=== PATIENT | male | born 1950 | race Caucasian/White ===

== ENCOUNTER 2022-01-03 23:51 | Inpatient (IN) | payer MEDICARE ==
[~2022-01-03] VITALS: Ht 182.9 cm; Wt 80.7 kg
[2022-01-04 01:27] LABS: CHLORIDE 88 mEq/L (98-107)
[2022-01-04 01:28] LABS: HEMATOCRIT. 24.6 % (42.0-52.0); HEMOGLOBIN. 8.6 g/dL (14.0-18.0); MEAN CORPUSCULAR VOLUME 97.1 fL (80.0-94.0); MEAN PLATELET VOLUME 8.4 fl (7.4-10.4); PLATELET 272 x1000/uL (130-400); RED BLOOD CELL COUNT 2.54 mill/uL (4.7-6.1)
[2022-01-04 01:38] LABS: BETA HYDROXYBUTYRATE 1.6 mMol/L (0.0-0.3)
[2022-01-04 05:15] LABS: PLATELET ESTIMATE NORMAL
[2022-01-04] MEDS ORDERED: NITROGLYCERIN 0.4MG TABLET SL SL PRN (07:15)
[2022-01-04] MEDS ORDERED: GUAIFENESIN 200MG/10ML SUGAR FREE UDC PO PRN (07:15)
[2022-01-04] MEDS ORDERED: ONDANSETRON HCL 4MG/2ML INJ IV PRN (07:15)
[2022-01-04] MEDS ORDERED: IPRATROPIUM/ALBUTEROL 0.5-3(2.5)MG/3ML NEB NEB PRN (07:15)
[2022-01-04] MEDS ORDERED: MAGNESIUM/ALUMINUM HYDROXIDE/SIMETHICONE 30ML UDC PO PRN (07:15)
[2022-01-04] MEDS ORDERED: CLONIDINE 0.1MG TABLET PO PRN (07:15)
[2022-01-04] MEDS ORDERED: ENOXAPARIN 40MG/0.4ML SYR SUBCUT SCH (07:15)
[2022-01-04] MEDS ORDERED: ACETAMINOPHEN 325MG TABLET PO PRN ×2 (07:15)
[2022-01-04] MEDS ORDERED: DOCUSATE SODIUM 100MG CAPSULE PO PRN (07:15)
[2022-01-04] MEDS ORDERED: DEXTROSE 50% WATER 50ML SYRINGE IV PRN (07:15)
[2022-01-04] MEDS ORDERED: PIPERACILLIN/TAZ 3.375G PREMIX 50 ML IV SCH (07:15)
[2022-01-04] MEDS ORDERED: SODIUM CHLORIDE 0.9% 1000ML BAG (SEPSIS BOLUS) IV ONE (07:15)
[2022-01-04] MEDS ORDERED: SODIUM CHLORIDE 0.9% 500 ML IV SCH (07:30)
[2022-01-04] MEDS ORDERED: VANCOMYCIN 1,500 MG in DEXT 5% WATER 250 ML IV NR (08:00)
[2022-01-04] MEDS: INSULIN LISPRO 100 UNITS/ML SUBCUT SCH ×4 (08:28→21:33)
[2022-01-04] MEDS: ASPIRIN 325MG EC TABLET PO SCH (08:54)
[2022-01-04] MEDS: ENOXAPARIN 30MG/0.3ML SYR SUBCUT SCH (08:54)
[2022-01-04] MEDS: FAMOTIDINE 20MG TABLET PO SCH (08:54)
[2022-01-04] MEDS: BLOOD SUGAR DIAGNOSTIC STRIP TEST SCH ×4 (08:54→21:35)
[2022-01-04] MEDS: INSULIN GLARGINE 100 UNITS/ML SUBCUT SCH (10:00)
[2022-01-04 14:00] VITALS: BP 108/54
[2022-01-04 14:23] LABS: T4 FREE 1.33 ng/dL (0.76-1.46)
[2022-01-04 16:00] VITALS: BP 116/59
[2022-01-04 20:00] VITALS: BP 109/51
[2022-01-04] MEDS ORDERED: PIPERACILLIN/TAZOBACTAM 3.375 G in DEXTROSE 5% WATER 50 ML IV SCH (21:00)
[2022-01-04] MEDS ORDERED: ZOLPIDEM TARTRATE 5MG TABLET PO PRN (21:00)
[2022-01-04] MEDS: EPOETIN ALFA-EPBX 4,000 UNIT/ML VIAL SUBCUT SCH (21:32)
[2022-01-04] MEDS: PIPERACILLIN/TAZOBACTAM 3.375 G in DEXTROSE 5% WATER 50 ML IV SCH (21:35)
[2022-01-04 22:58] LABS: CREATINE KINASE MB FRACTION 6.4 ng/mL (0.5-3.6)
[2022-01-04 23:31] LABS: VITAMIN B12 SERUM 401 pg/mL (211-911)
[2022-01-05] VITALS: BP 105/55
[2022-01-05 02:58] LABS: CREATINE KINASE MB FRACTION 5.3 ng/mL (0.5-3.6)
[2022-01-05 04:00] VITALS: BP 103/38
[2022-01-05] MEDS: INSULIN LISPRO 100 UNITS/ML SUBCUT SCH ×4 (06:18→20:53)
[2022-01-05] MEDS: BLOOD SUGAR DIAGNOSTIC STRIP TEST SCH ×4 (06:18→20:43)
[2022-01-05 07:38] LABS: HEMATOCRIT. 23.3 % (42.0-52.0); MEAN CORPUSCULAR HEMOGLOBIN 33.3 pg (28.0-32.0); MEAN PLATELET VOLUME 8.6 fl (7.4-10.4); PLATELET 231 x1000/uL (130-400); RED CELL DISTRIBUTION WIDTH 13.9 % (11.6-14.6)
[2022-01-05 08:00] VITALS: BP 94/88
[2022-01-05 08:40] LABS: FOLIC ACID (FOLATE) SERUM > 20.00 ng/mL (>5.38)
[2022-01-05 08:43] LABS: CHLORIDE 88 mEq/L (98-107)
[2022-01-05 09:01] LABS: PHOSPHORUS 4.7 mg/dL (2.5-4.9)
[2022-01-05] MEDS: FAMOTIDINE 20MG TABLET PO SCH (09:31)
[2022-01-05] MEDS: PIPERACILLIN/TAZOBACTAM 3.375 G in DEXTROSE 5% WATER 50 ML IV SCH ×2 (09:31→20:47)
[2022-01-05] MEDS: ENOXAPARIN 30MG/0.3ML SYR SUBCUT SCH (09:31)
[2022-01-05] MEDS: ASPIRIN 325MG EC TABLET PO SCH (09:32)
[2022-01-05] MEDS: INSULIN GLARGINE 100 UNITS/ML SUBCUT SCH (09:34)
[2022-01-05 10:30] LABS: PLATELET ESTIMATE NORMAL
[2022-01-05 12:00] VITALS: BP 96/51
[2022-01-05 16:00] VITALS: BP 101/49
[2022-01-05] MEDS ORDERED: VANCOMYCIN 1500MG in DEXTROSE 5% WATER 250ML IV NR (16:00)
[2022-01-05 20:00] VITALS: BP 113/54
[2022-01-05] MEDS: ATORVASTATIN CALCIUM 40MG TABLET PO SCH (20:47)
[2022-01-06] VITALS: BP 114/59
[2022-01-06 04:00] VITALS: BP 106/56
[2022-01-06] MEDS: BLOOD SUGAR DIAGNOSTIC STRIP TEST SCH ×4 (06:40→21:36)
[2022-01-06] MEDS: INSULIN LISPRO 100 UNITS/ML SUBCUT SCH ×3 (07:10→21:36)
[2022-01-06 08:00] VITALS: BP 105/55
[2022-01-06] MEDS: ENOXAPARIN 30MG/0.3ML SYR SUBCUT SCH (08:00)
[2022-01-06 08:55] LABS: HEMATOCRIT 23.8 % (42.0-52.0); HEMOGLOBIN 8.1 g/dL (14.0-18.0); MEAN CORPUSCULAR HEMOGLOBIN 33.3 pg (28.0-32.0); MEAN CORPUSCULAR VOLUME 97.8 fL (80.0-94.0); PLATELET 244 x1000/uL (130-400); RED BLOOD CELL COUNT 2.44 mill/uL (4.7-6.1); RED CELL DISTRIBUTION WIDTH 14.1 % (11.6-14.6)
[2022-01-06] MEDS: PIPERACILLIN/TAZOBACTAM 3.375 G in DEXTROSE 5% WATER 50 ML IV SCH ×2 (09:00→21:22)
[2022-01-06] MEDS: ASPIRIN 81MG EC TABLET PO SCH (09:00)
[2022-01-06] MEDS: FAMOTIDINE 20MG TABLET PO SCH (09:00)
[2022-01-06] MEDS ORDERED: PROPOFOL 200MG/20ML VIAL IV ONE (09:10)
[2022-01-06] MEDS ORDERED: DEXAMETHASONE 4MG/ML 1ML VIAL ONE (09:11)
[2022-01-06] MEDS ORDERED: ONDANSETRON HCL 4MG/2ML INJ ONE (09:11)
[2022-01-06] MEDS ORDERED: CEFAZOLIN SODIUM 1000MG/VIAL ONE (09:12)
[2022-01-06] MEDS ORDERED: FENTANYL CITRATE/PF 50MCG/ML 2ML VIAL ONE (09:17)
[2022-01-06] MEDS ORDERED: MIDAZOLAM HCL 2 MG/2 ML VIAL ONE (09:17)
[2022-01-06] MEDS ORDERED: ETOMIDATE 2MG/ML 10ML VIAL IV ONE (09:34)
[2022-01-06] MEDS ORDERED: LIDOCAINE HCL 1% 10 MG/ML 10ML VIAL ONE (09:38)
[2022-01-06] MEDS ORDERED: BUPIVACAINE HCL/PF 0.5% (5MG/ML) 10ML ONE (09:38)
[2022-01-06] MEDS: INSULIN GLARGINE 100 UNITS/ML SUBCUT SCH (10:00)
[2022-01-06] MEDS ORDERED: FENTANYL CITRATE/PF 50MCG/ML 2ML VIAL IV PRN (10:30)
[2022-01-06] MEDS ORDERED: ATROPINE SULFATE 0.4MG/ML VIAL IV PRN (10:30)
[2022-01-06 12:00] VITALS: BP 101/56
[2022-01-06 14:53] LABS: HEPATITIS B SURFACE ANTIGEN NEGATIVE
[2022-01-06 16:00] VITALS: BP 126/60
[2022-01-06] MEDS: SODIUM CHLORIDE 0.45% 1,000 ML IV SCH (17:36)
[2022-01-06] MEDS ORDERED: VANCOMYCIN 500MG PREMIX 100 ML IV NR (18:00)
[2022-01-06 20:00] VITALS: BP 108/57
[2022-01-06] MEDS: ATORVASTATIN CALCIUM 40MG TABLET PO SCH (21:26)
[2022-01-06] MEDS: EPOETIN ALFA-EPBX 4,000 UNIT/ML VIAL SUBCUT SCH (21:26)
[2022-01-07] VITALS (8 sets, daily range): BP systolic 84–110; BP diastolic 48–64
[2022-01-07] MEDS: BLOOD SUGAR DIAGNOSTIC STRIP TEST SCH ×4 (06:44→21:00)
[2022-01-07] MEDS: ENOXAPARIN 30MG/0.3ML SYR SUBCUT SCH (08:00)
[2022-01-07] MEDS: ASPIRIN 81MG EC TABLET PO SCH (09:00)
[2022-01-07] MEDS: FAMOTIDINE 20MG TABLET PO SCH (09:28)
[2022-01-07] MEDS: INSULIN GLARGINE 100 UNITS/ML SUBCUT SCH (09:29)
[2022-01-07] MEDS: INSULIN LISPRO 100 UNITS/ML SUBCUT SCH ×4 (09:29→21:10)
[2022-01-07] MEDS: PIPERACILLIN/TAZOBACTAM 3.375 G in DEXTROSE 5% WATER 50 ML IV SCH ×2 (09:30→21:14)
[2022-01-07] MEDS: SODIUM CHLORIDE 0.45% 1,000 ML IV SCH (09:32)
[2022-01-07] MEDS: ATORVASTATIN CALCIUM 40MG TABLET PO SCH (21:09)
[2022-01-08] VITALS: BP 112/62
[2022-01-08] MEDS: SODIUM CHLORIDE 0.45% 1,000 ML IV SCH ×2 (02:00→18:50)
[2022-01-08 04:00] VITALS: BP 110/61
[2022-01-08] MEDS: BLOOD SUGAR DIAGNOSTIC STRIP TEST SCH ×4 (06:40→20:47)
[2022-01-08] MEDS: INSULIN LISPRO 100 UNITS/ML SUBCUT SCH ×4 (06:42→20:47)
[2022-01-08 08:00] VITALS: BP 111/61
[2022-01-08] MEDS: ENOXAPARIN 30MG/0.3ML SYR SUBCUT SCH (10:14)
[2022-01-08] MEDS: PIPERACILLIN/TAZOBACTAM 3.375 G in DEXTROSE 5% WATER 50 ML IV SCH ×2 (10:14→20:47)
[2022-01-08] MEDS: FAMOTIDINE 20MG TABLET PO SCH (10:15)
[2022-01-08] MEDS: ASPIRIN 81MG EC TABLET PO SCH (10:15)
[2022-01-08] MEDS: INSULIN GLARGINE 100 UNITS/ML SUBCUT SCH (10:16)
[2022-01-08 10:59] LABS: HEMATOCRIT 27.2 % (42.0-52.0); HEMOGLOBIN 9.1 g/dL (14.0-18.0); MEAN CORPUSCULAR HEMOGLOBIN 33.4 pg (28.0-32.0); MEAN CORPUSCULAR VOLUME 99.7 fL (80.0-94.0); PLATELET 277 x1000/uL (130-400); RED BLOOD CELL COUNT 2.73 mill/uL (4.7-6.1); RED CELL DISTRIBUTION WIDTH 14.2 % (11.6-14.6)
[2022-01-08 12:00] VITALS: BP 119/53
[2022-01-08 16:00] VITALS: BP 125/64
[2022-01-08] MEDS ORDERED: VANCOMYCIN 750MG PMX (XELLIA) 150 ML IV NR (18:00)
[2022-01-08 20:00] VITALS: BP 143/72
[2022-01-08] MEDS: ATORVASTATIN CALCIUM 40MG TABLET PO SCH (20:47)
[2022-01-09] VITALS: BP 132/58
[2022-01-09 04:00] VITALS: BP 122/74
[2022-01-09] MEDS: BLOOD SUGAR DIAGNOSTIC STRIP TEST SCH ×4 (05:40→20:51)
[2022-01-09] MEDS: INSULIN LISPRO 100 UNITS/ML SUBCUT SCH ×4 (06:10→20:50)
[2022-01-09 08:00] VITALS: BP 122/56
[2022-01-09 08:10] LABS: HEMATOCRIT 25.9 % (42.0-52.0); HEMOGLOBIN 8.8 g/dL (14.0-18.0); MEAN CORPUSCULAR HEMOGLOBIN 33.4 pg (28.0-32.0); MEAN CORPUSCULAR VOLUME 98.4 fL (80.0-94.0); PLATELET 312 x1000/uL (130-400); RED BLOOD CELL COUNT 2.63 mill/uL (4.7-6.1); RED CELL DISTRIBUTION WIDTH 14.2 % (11.6-14.6)
[2022-01-09 08:51] LABS: PHOSPHORUS 6.4 mg/dL (2.5-4.9)
[2022-01-09] MEDS: ENOXAPARIN 30MG/0.3ML SYR SUBCUT SCH (09:03)
[2022-01-09] MEDS: PIPERACILLIN/TAZOBACTAM 3.375 G in DEXTROSE 5% WATER 50 ML IV SCH ×2 (09:04→21:19)
[2022-01-09] MEDS: FAMOTIDINE 20MG TABLET PO SCH (09:04)
[2022-01-09] MEDS: ASPIRIN 81MG EC TABLET PO SCH (09:04)
[2022-01-09] MEDS: INSULIN GLARGINE 100 UNITS/ML SUBCUT SCH (09:22)
[2022-01-09 12:00] VITALS: BP 124/58
[2022-01-09] MEDS: SODIUM CHLORIDE 0.45% 1,000 ML IV SCH ×2 (12:29→21:19)
[2022-01-09 16:00] VITALS: BP 133/60
[2022-01-09 17:39] LABS: HEPATITIS B SURFACE ANTIGEN NEGATIVE
[2022-01-09 20:00] VITALS: BP 111/54
[2022-01-09] MEDS: EPOETIN ALFA-EPBX 4,000 UNIT/ML VIAL SUBCUT SCH (21:19)
[2022-01-09] MEDS: ATORVASTATIN CALCIUM 40MG TABLET PO SCH (21:20)
[2022-01-09] MEDS ORDERED: AMOX-494 MT (21:26)
[2022-01-10] VITALS (11 sets, daily range): BP systolic 121–133; BP diastolic 53–66
[2022-01-10 06:34] LABS: HEMATOCRIT 24.1 % (42.0-52.0); HEMOGLOBIN 7.9 g/dL (14.0-18.0); MEAN CORPUSCULAR HEMOGLOBIN 33.3 pg (28.0-32.0); PLATELET 299 x1000/uL (130-400); RED BLOOD CELL COUNT 2.39 mill/uL (4.7-6.1); RED CELL DISTRIBUTION WIDTH 14.4 % (11.6-14.6)
[2022-01-10] MEDS: BLOOD SUGAR DIAGNOSTIC STRIP TEST SCH ×4 (06:40→21:34)
[2022-01-10] MEDS: INSULIN LISPRO 100 UNITS/ML SUBCUT SCH ×4 (06:48→21:00)
[2022-01-10] MEDS: FAMOTIDINE 20MG TABLET PO SCH (09:08)
[2022-01-10] MEDS: LACTOBACILLUS GG CAPSULE PO SCH (09:08)
[2022-01-10] MEDS: ASPIRIN 81MG EC TABLET PO SCH (09:08)
[2022-01-10] MEDS: ENOXAPARIN 30MG/0.3ML SYR SUBCUT SCH (09:10)
[2022-01-10] MEDS: PIPERACILLIN/TAZOBACTAM 3.375 G in DEXTROSE 5% WATER 50 ML IV SCH ×2 (09:11→21:33)
[2022-01-10] MEDS: INSULIN GLARGINE 100 UNITS/ML SUBCUT SCH (09:15)
[2022-01-10] MEDS: SODIUM CHLORIDE 0.45% 1,000 ML IV SCH (21:33)
[2022-01-10] MEDS: ATORVASTATIN CALCIUM 40MG TABLET PO SCH (21:34)
[2022-01-11] VITALS (7 sets, daily range): BP systolic 112–135; BP diastolic 53–73
[2022-01-11] MEDS: INSULIN LISPRO 100 UNITS/ML SUBCUT SCH ×4 (06:34→21:00)
[2022-01-11] MEDS: BLOOD SUGAR DIAGNOSTIC STRIP TEST SCH ×4 (06:34→21:00)
[2022-01-11 07:13] LABS: HEMATOCRIT 22.1 % (42.0-52.0); HEMOGLOBIN 7.6 g/dL (14.0-18.0); MEAN CORPUSCULAR HEMOGLOBIN 34.2 pg (28.0-32.0); MEAN CORPUSCULAR VOLUME 98.7 fL (80.0-94.0); PLATELET 274 x1000/uL (130-400); RED BLOOD CELL COUNT 2.24 mill/uL (4.7-6.1); RED CELL DISTRIBUTION WIDTH 14.4 % (11.6-14.6)
[2022-01-11 08:17] LABS: CHLORIDE 99 mEq/L (98-107)
[2022-01-11] MEDS: INSULIN GLARGINE 100 UNITS/ML SUBCUT SCH (09:02)
[2022-01-11] MEDS: FAMOTIDINE 20MG TABLET PO SCH (09:03)
[2022-01-11] MEDS: ASPIRIN 81MG EC TABLET PO SCH (09:03)
[2022-01-11] MEDS: PIPERACILLIN/TAZOBACTAM 3.375 G in DEXTROSE 5% WATER 50 ML IV SCH ×2 (09:03→22:14)
[2022-01-11] MEDS: LACTOBACILLUS GG CAPSULE PO SCH (09:04)
[2022-01-11] MEDS: ENOXAPARIN 30MG/0.3ML SYR SUBCUT SCH (09:04)
[2022-01-11] MEDS ORDERED: DESMOPRESSIN ACETATE IVPB 20 MCG in SODIUM CHLORIDE 0.9% 50 ML IV NR (13:00)
[2022-01-11] MEDS: SODIUM CHLORIDE 0.45% 1,000 ML IV SCH (13:24)
[2022-01-11] MEDS: ATORVASTATIN CALCIUM 40MG TABLET PO SCH (22:14)
[2022-01-12] VITALS (12 sets, daily range): BP systolic 109–132; BP diastolic 53–73
[2022-01-12] MEDS: BLOOD SUGAR DIAGNOSTIC STRIP TEST SCH ×4 (06:27→20:44)
[2022-01-12] MEDS: INSULIN LISPRO 100 UNITS/ML SUBCUT SCH ×4 (06:27→20:44)
[2022-01-12] MEDS: SODIUM CHLORIDE 0.45% 1,000 ML IV SCH ×2 (07:30→22:40)
[2022-01-12 07:56] LABS: HEMATOCRIT 23.3 % (42.0-52.0); HEMOGLOBIN 7.8 g/dL (14.0-18.0); MEAN CORPUSCULAR HEMOGLOBIN 33.5 pg (28.0-32.0); MEAN CORPUSCULAR VOLUME 99.5 fL (80.0-94.0); PLATELET 285 x1000/uL (130-400); RED BLOOD CELL COUNT 2.34 mill/uL (4.7-6.1); RED CELL DISTRIBUTION WIDTH 14.4 % (11.6-14.6)
[2022-01-12] MEDS: FAMOTIDINE 20MG TABLET PO SCH (08:59)
[2022-01-12] MEDS: ENOXAPARIN 30MG/0.3ML SYR SUBCUT SCH (08:59)
[2022-01-12] MEDS: PIPERACILLIN/TAZOBACTAM 3.375 G in DEXTROSE 5% WATER 50 ML IV SCH ×2 (08:59→20:44)
[2022-01-12] MEDS: ASPIRIN 81MG EC TABLET PO SCH (08:59)
[2022-01-12] MEDS: INSULIN GLARGINE 100 UNITS/ML SUBCUT SCH (09:01)
[2022-01-12 09:14] LABS: CHLORIDE 95 mEq/L (98-107)
[2022-01-12] MEDS: LACTOBACILLUS GG CAPSULE PO SCH (09:16)
[2022-01-12] MEDS: ATORVASTATIN CALCIUM 40MG TABLET PO SCH (20:44)
[2022-01-12] MEDS ORDERED: EPOETIN ALFA-EPBX 4,000 UNIT/ML VIAL SUBCUT SCH (21:00)
[2022-01-13] VITALS: BP 118/58
[2022-01-13 04:00] VITALS: BP 123/65
[2022-01-13] MEDS: BLOOD SUGAR DIAGNOSTIC STRIP TEST SCH ×2 (06:10→12:14)
[2022-01-13] MEDS: INSULIN LISPRO 100 UNITS/ML SUBCUT SCH ×2 (06:11→12:15)
[2022-01-13 08:00] VITALS: BP 111/56
[2022-01-13] MEDS ORDERED: ASCO-339 MT (09:31)
[2022-01-13] MEDS ORDERED: ZINC100T8 PO (09:31)
[2022-01-13] MEDS: FAMOTIDINE 20MG TABLET PO SCH (10:04)
[2022-01-13] MEDS: ASPIRIN 81MG EC TABLET PO SCH (10:04)
[2022-01-13] MEDS: ENOXAPARIN 30MG/0.3ML SYR SUBCUT SCH (10:05)
[2022-01-13] MEDS: INSULIN GLARGINE 100 UNITS/ML SUBCUT SCH (10:05)
[2022-01-13 10:51] LABS: HEMATOCRIT 21.9 % (42.0-52.0); HEMOGLOBIN 7.4 g/dL (14.0-18.0); MEAN CORPUSCULAR HEMOGLOBIN 33.4 pg (28.0-32.0); MEAN CORPUSCULAR VOLUME 98.9 fL (80.0-94.0); PLATELET 283 x1000/uL (130-400); RED BLOOD CELL COUNT 2.21 mill/uL (4.7-6.1)
[2022-01-13] MEDS: LACTOBACILLUS GG CAPSULE PO SCH (10:52)
[2022-01-13 11:00] VITALS: BP 111/56
[2022-01-13] MEDS ORDERED: CEFAZOLIN 3,000 MG in DEXT 5% WATER 100 ML IV SCH (11:00)
[2022-01-13 12:00] VITALS: BP 113/57
== END 2022-01-13 13:45 | disposition home health service (06) | DRG 853 ==
LOC: ER 23:51 → 7EST 01-04 05:12 → ENRESERV 01-04 09:18 → CANBEDREQ 01-04 09:54 → ENRESERV 01-04 09:56 → EDBEDREQ 01-04 09:56 → 7EST 01-07 01:42
PROVIDERS: ADMIT Internal Medicine; ATTEND Internal Medicine
PROC: 0JBR0ZZ Excision of Left Foot Subcutaneous Tissue and Fascia, Open Approach (ICD-10-PCS; 2022-01-05)
PROC: 0JBQ0ZZ Excision of Right Foot Subcutaneous Tissue and Fascia, Open Approach (ICD-10-PCS; 2022-01-05)
PROC: 0LBV0ZZ Excision of Right Foot Tendon, Open Approach (ICD-10-PCS; 2022-01-05)
PROC: 5A1D70Z Performance of Urinary Filtration, Intermittent, Less than 6 Hours Per Day (ICD-10-PCS; 2022-01-05)
PROC: 0QBN0ZZ Excision of Right Metatarsal, Open Approach (ICD-10-PCS; principal; 2022-01-06)
PROC: 5A1D70Z Performance of Urinary Filtration, Intermittent, Less than 6 Hours Per Day (ICD-10-PCS; 2022-01-08)
PROC: 5A1D70Z Performance of Urinary Filtration, Intermittent, Less than 6 Hours Per Day (ICD-10-PCS; 2022-01-10)
DX: A41.01 Sepsis due to Methicillin susceptible Staphylococcus aureus (principal); E43 Unspecified severe protein-calorie malnutrition; G92.8 Other toxic encephalopathy; I21.A1 Myocardial infarction type 2; I50.23 Acute on chronic systolic (congestive) heart failure; N18.6 End stage renal disease; L02.611 Cutaneous abscess of right foot; I42.9 Cardiomyopathy, unspecified; I13.2 Hypertensive heart and chronic kidney disease with heart failure and with stage 5 chronic kidney disease, or end stage renal disease; I47.20 Ventricular tachycardia, unspecified; R65.20 Severe sepsis without septic shock; E11.65 Type 2 diabetes mellitus with hyperglycemia; D63.8 Anemia in other chronic diseases classified elsewhere; E11.22 Type 2 diabetes mellitus with diabetic chronic kidney disease; E78.5 Hyperlipidemia, unspecified; I48.91 Unspecified atrial fibrillation; E11.69 Type 2 diabetes mellitus with other specified complication; E11.51 Type 2 diabetes mellitus with diabetic peripheral angiopathy without gangrene; E11.621 Type 2 diabetes mellitus with foot ulcer; I27.20 Pulmonary hypertension, unspecified; E11.40 Type 2 diabetes mellitus with diabetic neuropathy, unspecified; E11.319 Type 2 diabetes mellitus with unspecified diabetic retinopathy without macular edema; L97.519 Non-pressure chronic ulcer of other part of right foot with unspecified severity; I08.1 Rheumatic disorders of both mitral and tricuspid valves; S91.302A Unspecified open wound, left foot, initial encounter; S91.301A Unspecified open wound, right foot, initial encounter; Z99.2 Dependence on renal dialysis; Z68.24 Body mass index [BMI] 24.0-24.9, adult; Z95.810 Presence of automatic (implantable) cardiac defibrillator; Z79.4 Long term (current) use of insulin; Z82.49 Family history of ischemic heart disease and other diseases of the circulatory system; Z83.3 Family history of diabetes mellitus; X58.XXXA Exposure to other specified factors, initial encounter; Y93.89 Activity, other specified; Y92.89 Other specified places as the place of occurrence of the external cause; Y99.8 Other external cause status
CPT/HCPCS: 36415; 71045; 73630; 80048; 80053; 80061; 80202; 82010; 82550; 82553; 82607; 82746; 82962; 83036; 83540; 83550; 83605; 83735; 83930; 84100; 84145; 84439; 84443; 84484; 85025; 85027; 86705; 86709; 86803; 86850; 86900; 87070; 87075; 87077; 87186; 87340; 87426; 88311; 93005; 93306; 93923; 93970; 97116; 97161; 97530; 99291; J0690; J0885; J1100; J1650; J1815; J2250; J2405; J2543; J2597; J2704; J3010; J3370; J3490; J7060